=== PATIENT | female | born 1940 | race Caucasian/White ===

== ENCOUNTER 2019-08-19 13:41 | Emergency (ER) | payer MEDICARE, OTHER ==
[~2019-08-19] VITALS: Ht 160 cm; Wt 93.0 kg
[~2019-08-19 13:41] MED LIST: AMLO5TAB10 PO; ASPI325T8 PO; LOSA1TAB19 PO; METO50TA6 PO; Metoprolol Tartrate PO
[2019-08-19 14:32] LABS: BASO # 0.1 x10^3/uL (0.0-0.2); BASO % 1 % (0-3); EOS # 0.2 x10^3/uL (0.0-0.7); EOS % 3 % (0-3); HEMATOCRIT 43.1 % (36.0-47.0); HEMOGLOBIN 14.4 g/dL (12.0-15.5); LYMPH # 1.3 x10^3/uL (1.0-4.8); LYMPH % 21 % (24-48); MEAN CORPUSCULAR HEMOGLOBIN 29 pg (25-35); MEAN CORPUSCULAR HGB CONC 34 g/dL (31-37); MEAN CORPUSCULAR VOLUME 87 fL (79-100); MONO # 0.7 x10^3/uL (0.0-1.1); MONO % 11 % (0-9); NEUT # 4.2 x10^3/uL (1.8-7.7); NEUT % 65 % (31-73); PLATELET COUNT 247 x10^3/uL (140-400); RED BLOOD COUNT 4.98 x10^6/uL (3.50-5.40); WHITE BLOOD COUNT 6.5 x10^3/uL (4.0-11.0)
[2019-08-19 14:42] LABS: PROTHROMBIN TIME PATIENT 13.3 SEC (11.7-14.0)
--- NOTE | 2019-08-19 14:46 | RAD ---
Examination: PORTABLE CHEST 1V History: Reason: chest pain / Spl. Instructions: / History: Comparison/Correlation: None Findings: Portable erect frontal view of the chest was obtained. Heart size is mildly enlarged arteries although this may alternatively be due to technique. Pulmonary vasculature is within the upper limits of normal. No pneumothorax. No infiltrate or pleural effusion although evaluation of the left lung base may be limited due to underpenetrated technique and overlying soft tissues. Pulmonary hyperinflation may be present. No definite pleural effusion. Bony structures are grossly unremarkable for the patient's age. Impression: No infiltrate. No acute process. Electronically signed by: Davian Hill MD (08/19/2019 2:43 PM) [id number]
[2019-08-19 14:49] LABS: ALBUMIN 3.2 g/dL (3.4-5.0); ALBUMIN/GLOBULIN RATIO 0.8 (1.0-1.7); CALCIUM 8.9 mg/dL (8.5-10.1); CREATININE 0.9 mg/dL (0.6-1.0); GFR 60.6; MAGNESIUM 1.9 mg/dL (1.8-2.4); TOTAL BILIRUBIN 0.8 mg/dL (0.2-1.0); TOTAL PROTEIN 7.4 g/dL (6.4-8.2)
[2019-08-19 14:59] LABS: POTASSIUM 2.7 mmol/L (3.5-5.1)
[2019-08-19] MEDS ORDERED: POTASSIUM CHLORIDE 20 MEQ TABLET.ER. PO ONE (15:30)
[2019-08-19] MEDS: ASPIRIN CHEWABLE 81 MG TABLET. PO ONE ×2 (16:00→16:12)
[2019-08-19 16:08] VITALS: BP 142/64
--- NOTE | 2019-08-19 16:20 | PHYS DOC ---
Past Medical History Past Medical History: Diabetes-Type II, Hypertension, Other Additional Past Medical Histor: MINI STROKES Past Surgical History: Other Additional Past Surgical Histo: FOOT SURGERY Smoking Status: Never Smoker Alcohol Use: None Drug Use: None General Adult EDM: Chief Complaint: CHEST PAIN HPI: HPI: Patient is a 79 year old female who presented to ER today for evaluation of substernal chest pain started about 1 and half hour ago. Patient says she feels like an elephant sitting on her chest, she took 4 baby aspirin at home. Patient denies any history of coronary disease, denies history of diabetes. Patient has history of hypertension. Patient is not a smoker, denies history of blood clot disorder, denies any recent travel or operation. Patient denies any cough or fever. Patient denies being exposed to anybody who tested positive for COVID- 19. Review of Systems: Review of Systems: Constitutional: Denies fever or chills. [] Eyes: Denies change in visual acuity. [] HENT: Denies nasal congestion or sore throat. [] Respiratory: Denies cough or shortness of breath. [] Cardiovascular: Positive for chest pain GI: Denies abdominal pain, nausea, vomiting, bloody stools or diarrhea. [] : Denies dysuria. [] Musculoskeletal: Denies back pain or joint pain. [] Integument: Denies rash. [] Neurologic: Denies headache, focal weakness or sensory changes. [] Endocrine: Denies polyuria or polydipsia. [] Lymphatic: Denies swollen glands. [] Psychiatric: Denies depression or anxiety. [] Heart Score: HEART Score for Chest Pain: HEART Score for Chest Pain Response (Comments) Value History Moderately Suspicious 1 ECG Nonspecific Repolarizatio 1 Age > 65 2 Risk Factors 1 or 2 Risk Factors 1 Troponin < Normal Limit 0 Total 5 Risk Factors: Risk Factors: DM, Current or recent (<one month) smoker, HTN, HLP, family history of CAD, obesity. Risk Scores: Score 0 - 3: 2.5% MACE over next 6 weeks - Discharge Home Score 4 - 6: 20.3% MACE over next 6 weeks - Admit for Clinical Observation Score 7 - 10: 72.7% MACE over next 6 weeks - Early Invasive Strategies Current Medications: Current Medications Medications (Trade) Dose Ordered Sig/Corbin Start Time Stop Time Status Last Admin Dose Admin Aspirin (Aspirin Chewable) 324 mg 1X ONCE 08/19/19 16:00 08/19/19 16:01 DC 08/19/19 16:12 324 MG Potassium Chloride (Klor-Con) 40 meq 1X ONCE 08/19/19 15:30 08/19/19 15:31 DC 08/19/19 15:31 40 MEQ Allergies: Allergies: Allergies Coded Allergies Type Severity Reaction Last Updated Verified diphenhydramine Allergy Intermediate HIVES 01/30/14 Yes Physical Exam: PE: Constitutional: Well developed, well nourished, no acute distress, non-toxic appearance. [] HENT: Normocephalic, atraumatic, bilateral external ears normal, oropharynx moist, no oral exudates, nose normal. [] Eyes: PERRLA, EOMI, conjunctiva normal, no discharge. [] Neck: Normal range of motion, no tenderness, supple, no stridor. [] Cardiovascular:Heart rate regular rhythm, no murmur [] Lungs & Thorax: Bilateral breath sounds clear to auscultation [] Abdomen: Bowel sounds normal, soft, no tenderness, no masses, no pulsatile masses. [] Skin: Warm, dry, no erythema, no rash. [] Back: No tenderness, no CVA tenderness. [] Extremities: No tenderness, no cyanosis, no clubbing, ROM intact, no edema. [] Neurologic: Alert and oriented X 3, normal motor function, normal sensory function, no focal deficits noted. [] Psychologic: Affect normal, judgement normal, mood normal. [] Current Patient Data: Labs: Laboratory Tests Test 08/19/19 13:58 White Blood Count 6.5 x10^3/uL (4.0-11.0) Red Blood Count 4.98 x10^6/uL (3.50-5.40) Hemoglobin 14.4 g/dL (12.0-15.5) Hematocrit 43.1 % (36.0-47.0) Mean Corpuscular Volume 87 fL (79-100) Mean Corpuscular Hemoglobin 29 pg (25-35) Mean Corpuscular Hemoglobin Concent 34 g/dL (31-37) Red Cell Distribution Width 14.0 % (11.5-14.5) Platelet Count 247 x10^3/uL (140-400) Neutrophils (%) (Auto) 65 % (31-73) Lymphocytes (%) (Auto) 21 % (24-48) L Monocytes (%) (Auto) 11 % (0-9) H Eosinophils (%) (Auto) 3 % (0-3) Basophils (%) (Auto) 1 % (0-3) Neutrophils # (Auto) 4.2 x10^3/uL (1.8-7.7) Lymphocytes # (Auto) 1.3 x10^3/uL (1.0-4.8) Monocytes # (Auto) 0.7 x10^3/uL (0.0-1.1) Eosinophils # (Auto) 0.2 x10^3/uL (0.0-0.7) Basophils # (Auto) 0.1 x10^3/uL (0.0-0.2) Prothrombin Time 13.3 SEC (11.7-14.0) Prothrombin Time INR 1.1 (0.8-1.1) Activated Partial Thromboplast Time 24 SEC (24-38) Sodium Level 138 mmol/L (136-145) Potassium Level 2.7 mmol/L (3.5-5.1) *L Chloride Level 100 mmol/L (98-107) Carbon Dioxide Level 29 mmol/L (21-32) Anion Gap 9 (6-14) Blood Urea Nitrogen 18 mg/dL (7-20) Creatinine 0.9 mg/dL (0.6-1.0) Estimated GFR (Cockcroft-Gault) 60.6 BUN/Creatinine Ratio 20 (6-20) Glucose Level 173 mg/dL (70-99) H Calcium Level 8.9 mg/dL (8.5-10.1) Magnesium Level 1.9 mg/dL (1.8-2.4) Total Bilirubin 0.8 mg/dL (0.2-1.0) Aspartate Amino Transferase (AST) 19 U/L (15-37) Alanine Aminotransferase (ALT) 20 U/L (14-59) Alkaline Phosphatase 101 U/L (46-116) Troponin I Quantitative < 0.017 ng/mL (0.000-0.055) FG-Aop-L-Type Natriuretic Peptide 312 pg/mL (0-449) Total Protein 7.4 g/dL (6.4-8.2) Albumin 3.2 g/dL (3.4-5.0) L Albumin/Globulin Ratio 0.8 (1.0-1.7) L Lipase 77 U/L (73-393) Laboratory Tests 08/19/19 13:58 Laboratory Tests 08/19/19 13:58 Vital Signs: Vital Signs Date Time Temp Pulse Resp B/P (MAP) Pulse Ox O2 Delivery O2 Flow Rate FiO2 08/19/19 13:50 98.0 60 16 140/72 (94) 95 Room Air 98.0 EKG: EKG: EKG was done at 1350, heart rate of 67 bpm, nonspecific ST segment abnormality. No ST segment elevation Radiology/Procedures: Radiology/Procedures: [facility] [address] [place] [address] IMAGING REPORT Signed PATIENT: LILY DUNCAN ACCOUNT: [id number] : 1940 LOCATION: ER AGE: 79 SEX: F EXAM STATUS: REG ER ORD. PHYSICIAN: SOFÍA GALLARDO DO REASON: chest pain PROCEDURE: PORTABLE CHEST 1V Examination: PORTABLE CHEST 1V History: Reason: chest pain / Spl. Instructions: / History: Comparison/Correlation: None Findings: Portable erect frontal view of the chest was obtained. Heart size is mildly enlarged arteries although this may alternatively be due to technique. Pulmonary vasculature is within the upper limits of normal. No pneumothorax. No infiltrate or pleural effusion although evaluation of the left lung base may be limited due to underpenetrated technique and overlying soft tissues. Pulmonary hyperinflation may be present. No definite pleural effusion. Bony structures are grossly unremarkable for the patient's age. Impression: No infiltrate. No acute process. Electronically signed by: Davian Sierra MD (08/19/2019 2:43 PM) [id number] DICTATED and SIGNED BY: DAVIAN SIERRA MD DATE: 08/19/19 1442 Course & Med Decision Making: Course & Med Decision Making Pertinent Labs and Imaging studies reviewed. (See chart for details) Patient is a 79-year-old female who was evaluated in the ER due to substernal chest pain. Her EKG and cardiac enzyme is normal so far. However her symptoms just started a few hours prior to arrival. this physician recommend the patient is to be admitted to the hospital. Patient and her daughter was in the room, agreed to be admitted to hospital. Discussed with Dr. Abbasi who agreed to admit the patient to his service. Patient potassium level was low, she was given 40 mEq of potassium p.o. At 1610, patient decided to leaving AGAINST MEDICAL ADVICE because she afraid that nobody can take care of her dog at home. Patient is awake alert oriented, she has mental capacity to make medical decisi on. Dragon Disclaimer: Dragon Disclaimer: This electronic medical record was generated, in whole or in part, using a voice recognition dictation system. Departure Departure Impression: Primary Impression: Chest pain Additional Impression: Hypokalemia Disposition: 07 AGAINST MEDICAL ADVICE Condition: STABLE Referrals: BARBARA MYLES (PCP) Additional Instructions: Patient does not wish to proceed with medical care recommended by this Physician. Patient given information related to possible complications, up to and including , which could occur as a result of leaving the hospital at this time. Patient verbalizes understanding of risks involved due to leaving against medical advice. Patient has singned AMA form. Justicifation of Admission Dx: Justifications for Admission: Justification of Admission Dx: N/A SOFÍA GALLARDO DO Aug 19, 2019 16:20
--- NOTE | 2019-08-23 15:51 | EKG ---
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
== END 2019-08-19 16:42 | disposition left against medical advice (07) ==
LOC: ER 13:41
DX: R07.2 Precordial pain (principal); E87.6 Hypokalemia; E11.9 Type 2 diabetes mellitus without complications; I10 Essential (primary) hypertension; Z86.73 Personal history of transient ischemic attack (TIA), and cerebral infarction without residual deficits; Z88.5 Allergy status to narcotic agent
CPT/HCPCS: 36415; 71045; 80053; 83690; 83735; 83880; 84484; 85025; 85610; 85730; 93005; 99285-25

== ENCOUNTER 2019-09-17 01:38 | Emergency (ER) | payer MEDICARE ==
[~2019-09-17] VITALS: Ht 157.5 cm; Wt 92.3 kg
[2019-09-17 04:31] LABS: CREATININE 0.8 mg/dL (0.6-1.0); GFR 69.4; MAGNESIUM 1.9 mg/dL (1.8-2.4); POTASSIUM 3.5 mmol/L (3.5-5.1)
[2019-09-17] MEDS ORDERED: diazePAM 5 MG TABLET PO ONE (05:00)
--- NOTE | 2019-09-17 05:47 | RAD ---
CT abdomen and pelvis without contrast: Reason for examination: Low back and abdominal pain. Helical images were obtained through the abdomen and pelvis with no intravenous or oral contrast administered. Reconstruction was performed in sagittal and coronal planes. Exposure: One or more of the following individualized dose reduction techniques were utilized for this examination: 1. Automated exposure control 2. Adjustment of the mA and/or kV according to patient size 3. Use of iterative reconstruction technique. The lung bases are clear. The heart size is borderline enlarged with no pericardial effusion. No abnormality seen at the liver, spleen or pancreas. No abnormality seen at the right adrenal gland. Left adrenal gland however shows a hypodense lesion measuring 1.5 cm in size which may represent a myolipoma. Gallbladder shows a nodular lesion with possible calcified rim. This may represent a laminated gallstone. Further evaluated with ultrasound. The kidneys show no renal masses but there are nonobstructing renal calculi bilaterally. There is no hydronephrosis or evidence of obstructive uropathy. The colon shows presence of diverticulosis in the sigmoid colon without diverticulitis. There is a small hiatal hernia. The small intestinal tract shows no abnormal dilatation, wall thickening or obstruction. No abnormality is seen at the bladder, uterus or ovaries. No adnexal masses or free fluid are seen. There are some degenerative disc disease at the L1-2 disc level. Remaining vertebral disc are maintained. There R no acute bony abnormality seen. 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 Nonobstructing calculi in the kidneys bilaterally but no hydronephrosis or obstructive uropathy evident. Small hiatal hernia. 1.5 cm lesion in the gallbladder which possibly is a calcified rim. This may represent a laminated gallstone. Further evaluation with ultrasound is recommended. Electronically signed by: Molly Isaac MD (09/17/2019 5:44 AM) [id number]
--- NOTE | 2019-09-17 05:55 | PHYS DOC ---
Past Medical History Past Medical History: Diabetes-Type II, Hypertension, Other Additional Past Medical Histor: MINI STROKES (WAYNE BELLO MD) Past Surgical History: Other Additional Past Surgical Histo: FOOT SURGERY (WAYNE BELLO MD) Smoking Status: Never Smoker Alcohol Use: None Drug Use: None (WAYNE BELLO MD) General Adult EDM: Chief Complaint: BACK PAIN OR INJURY HPI: HPI: Patient is a 79 year old female who presents with lower bilateral back pain. Patient states that she was carrying very heavy cast iron skillet's with castor and lids on them throughout the day yesterday. She slowly developed lower back pain which has progressively gotten worse. She states she cannot lay flat and has a difficult time moving around. She has not been able to sleep all night due to the pain. She denies any numbness or weakness in her legs. She is not had any bowel or bladder incontinence. She does not have any fever. (WAYNE BELLO MD) Review of Systems: Review of Systems: General: Denies fever, chills, sweats, fatigue Eyes: Denies drainage, blurred vision, eye redness HENT: Denies rhinorrhea, sore throat, earache Respiratory: Denies cough, shortness of breath, wheezing Cardiac: Denies edema, palpitations, chest pain GI: Denies abdominal pain, Nausea, vomiting MSK: Denies neck pain reports back pain Skin: Denies rash, jaundice Neuro: Denies headache, dizziness Psychiatric: Denies SI/HI (WAYNE BELLO MD) Heart Score: Risk Factors: Risk Factors: DM, Current or recent (<one month) smoker, HTN, HLP, family history of CAD, obesity. Risk Scores: Score 0 - 3: 2.5% MACE over next 6 weeks - Discharge Home Score 4 - 6: 20.3% MACE over next 6 weeks - Admit for Clinical Observation Score 7 - 10: 72.7% MACE over next 6 weeks - Early Invasive Strategies (WAYNE BELLO MD) Current Medications: Current Medications Medications (Trade) Dose Ordered Sig/Corbin Start Time Stop Time Status Last Admin Dose Admin Diazepam (Valium) 5 mg 1X ONCE 09/17/19 05:00 09/17/19 05:01 DC 09/17/19 05:00 5 MG (WAYNE BELLO MD) Allergies: Allergies: Allergies Coded Allergies Type Severity Reaction Last Updated Verified diphenhydramine Allergy Intermediate HIVES 01/30/14 Yes (WAYNE BELLO MD) Physical Exam: PE: General: Awake, alert, NAD. Well Nourished, well hydrated. Cooperative HEENT: Atraumatic, EOMI, PERRL, airway patent, moist oral mucosa Neck: Supple, trachea midline Respiratory: CTA bilaterally, normal effort, no wheezing/crackles CV: RRR, no murmur, cap refill <2 GI: Soft, nondistended, nontender, no masses MSK: No obvious deformities, lower drying machine back tender to palpitation bilaterally Skin: Warm, dry, intact Neuro: A&O x3, speech NL, sensory and motor grossly intact, no focal deficits Psych: Normal affect, normal mood, not suicidal or homicidal (WAYNE BELLO MD) Current Patient Data: Labs: Laboratory Tests Test 09/17/19 04:08 Sodium Level 139 mmol/L (136-145) Potassium Level 3.5 mmol/L (3.5-5.1) Chloride Level 104 mmol/L (98-107) Carbon Dioxide Level 27 mmol/L (21-32) Anion Gap 8 (6-14) Blood Urea Nitrogen 16 mg/dL (7-20) Creatinine 0.8 mg/dL (0.6-1.0) Estimated GFR (Cockcroft-Gault) 69.4 Glucose Level 136 mg/dL (70-99) H Calcium Level 9.0 mg/dL (8.5-10.1) Magnesium Level 1.9 mg/dL (1.8-2.4) Laboratory Tests 09/17/19 04:08 Vital Signs: Vital Signs Date Time Temp Pulse Resp B/P (MAP) Pulse Ox O2 Delivery O2 Flow Rate FiO2 09/17/19 03:45 98.7 79 18 158/70 (99) 100 Room Air 98.7 (WAYNE BELLO MD) EKG: EKG: [] (WAYNE BELLO MD) Radiology/Procedures: Radiology/Procedures: [] (WAYNE BELLO MD) Course & Med Decision Making: Course & Med Decision Making Pertinent Labs and Imaging studies reviewed. (See chart for details) Patient is a 79-year-old female who presents to the emergency room with progr essive back pain. She does not appear to be tender on palpation. CT abdomen pelvis were ordered to rule out a pathologic fracture or abdominal aneurysm and was normal. Patient will be treated symptomatically. (WAYNE BELLO MD) Course & Med Decision Making Patient signed out to myself by overnight physician I re-evaluated patient myself and agree with history and physical exam obtained Patient feeling better after ED intervention Given History and Exam the patient appears to be at low risk for Spinal Cord Compression Syndrome, Vertebral Malignancy/Mets, acute Spinal Fracture, Vertebral Osteomyelitis, Epidural Abscess, Infected or Obstructing Kidney Stone. Their presentation appears most likely to be secondary to non-emergent musculoskeletal etiology vs non-emergent disc herniation. Case discussed with patient and patient's daughter. Joint-decision for discharge home with continued supportive care and close PCP follow-up Disposition: Discharge. Strict return precautions discussed with patient and daughter with full understanding. Advised patient to follow up promptly with primary care provider (WILLIAM PERDOMO DO) [place] Disclaimer: George Disclaimer: This electronic medical record was generated, in whole or in part, using a voice recognition dictation system. (WAYNE BELLO MD) Departure Departure Impression: Primary Impression: Back pain Disposition: 01 HOME, SELF-CARE Condition: STABLE Referrals: BARBARA MYLES (PCP) Patient Instructions: Back Pain, Adult Additional Instructions: You were evaluated in the Emergency Department today for back pain. Your evaluation suggests no acute abnormalities which require further intervention at this time. - Move around as tolerated but avoiding heavy lifting. ``Bed rest is not recommended nor is it the best treatment for low back pain. - Medications will help control your discomfort: - Ibuprofen (800 mg every 8 hours for pain). - Do not drink alcohol, drive a car, operate machinery, or get up on ladders or heights when taking any prescribed pain medications. - Do not drive home if you received prescribed pain medications here in the ED. Please follow up with your primary care physician as needed. If you do not have a primary doctor, you can call your insurance company to find one. If you do not have insurance, you can go to the finance/registration department for more assistance. Return to the ED immediately if you develop any of the following problems: - Leaking urine or difficulty urinating; - Inability to control your bowels; - New numbness or weakness in your legs or numbness between your legs; - Inability to walk - Fever Scripts Methocarbamol (ROBAXIN-750) 750 Mg Tablet 1 TAB PO TID PRN for MUSCLE PAIN for 10 Days, #30 TAB 0 Refills Prov: WAYNE BELLO MD 09/17/19 Justicifation of Admission Dx: Justifications for Admission: Justification of Admission Dx: No (WAYNE BELLO MD) WAYNE BELLO MD Sep 17, 2019 05:55 WILLIMA PERDOMO DO Sep 17, 2019 07:03
[2019-09-17] MEDS ORDERED: METH-38 PO (06:13)
[2019-09-17 06:22] VITALS: BP 218/110
[2019-09-17] MEDS ORDERED: oxyCODONE/APAP 5/325 1 TAB TABLET PO ONE (06:30)
[2019-09-17] MEDS ORDERED: LIDOCAINE (700MG/PATCH) PATCH. TD ONE (06:30)
--- NOTE | 2019-09-20 13:51 | EKG ---
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
== END 2019-09-17 08:04 | disposition home or self-care (01) ==
LOC: ER 01:38
DX: M54.5 Low back pain (principal); I10 Essential (primary) hypertension; E11.9 Type 2 diabetes mellitus without complications; Z88.5 Allergy status to narcotic agent
CPT/HCPCS: 36415; 74176; 80048; 83735; 93005; 99285-25